=== PATIENT | male | born 1955 ===

== ENCOUNTER → 2018-08-05 | Outpatient (CLI) | payer OTHER ==
--- NOTE | 2018-08-05 17:28 | RADIOLOGY IMAGING REPORT ---
FACILITY: [facility] PATIENT NAME: Parker Stephen : 1955 MR: [id number] V: [id number] EXAM DATE: ORDERING PHYSICIAN: ANASTACIA BINGHAM TECHNOLOGIST: Location: [facility] [place] Patient: Parker Stephen : 1955 Visit/Account:[id number] Date of Sevice: 08/05/2018 Exam type: VENOUS DOPP LOW RIGHT EXTREMIT History: Right calf pain, traveling Comparison: None. Findings: Right lower extremity veins were imaged including the right common femoral vein greater saphenous vei n superficial femoral vein, popliteal vein, posterior tibial vein peroneal vein and anterior tibial v ein revealing no evidence intraluminal thrombi the veins were compressible and demonstrated augmentat ion. Incidentally noted was a small 9.6 x 6.2 x 3.2 mm fluid collection along the dorsal aspect of the mid right forearm which may represent a small hematoma. IMPRESSION: 1. No sonographic evidence DVT involving the right lower extremity veins Report Dictated By: Veronika Centeno MD at 08/05/2018 5:22 PM Report E-Signed By: Veronika Centeno MD at 08/05/2018 5:23 PM WSN:[email or web address]
== END ==
LOC: US 15:29
PROVIDERS: ATTEND Nurse Practitioner
DX: M79.661 Pain in right lower leg (principal); R22.41 Localized swelling, mass and lump, right lower limb

== ENCOUNTER → 2018-08-06 | Outpatient (CLI) | payer OTHER ==
--- NOTE | 2018-08-06 15:21 | RADIOLOGY IMAGING REPORT ---
FACILITY: [facility] PATIENT NAME: Parker Stephen : 1955 MR: [id number] V: [id number] EXAM DATE: ORDERING PHYSICIAN: ANASTACIA BINGHAM TECHNOLOGIST: Location: [facility] Patient: Parker Stephen : 1955 Visit/Account:[id number] Date of Sevice: 08/06/2018 Exam type: HIP RIGHT History: Hip pain evaluate for arthritis Comparison: None. Findings: Only mild superior joint space narrowing is noted bilaterally. No significant arthritic changes seen . No evidence of lytic or blastic bone lesions no evidence of fracture or dislocation. IMPRESSION: 1. Minimal joint space narrowing of the hip joints bilaterally Report Dictated By: Veronika Centeno MD at 08/06/2018 3:16 PM Report E-Signed By: Veronika Centeno MD at 08/06/2018 3:17 PM WSN:[email or web address]
== END ==
LOC: SPU 13:52
PROVIDERS: ATTEND Nurse Practitioner
DX: M25.551 Pain in right hip (principal)

== ENCOUNTER 2018-08-12 08:45 | Outpatient (RCR) | payer OTHER ==
[2018-08-12] MEDS ORDERED: GADOBENATE 529MG/1ML 15ML VIAL IVP ONE (09:56)
--- NOTE | 2018-08-26 15:46 | RADIOLOGY IMAGING REPORT ---
[place] [facility] [place] Parker Stephen : 1955 MR: [id number] V: [id number] EXAM DATE: ORDERING PHYSICIAN: ANASTACIA BINGHAM TECHNOLOGIST: Location: [facility] [place] Patient: Parker Stephen : 1955 Visit/Account:[id number] Date of Sevice: 08/12/2018 ADDENDUM #1 Addendum: An additional axial T1 without fat saturation through the sacrum was obtained. The enhancin g lesion in question in the left posterior iliac wing is hyperintense on T1 and therefore consistent with a benign lesion such as intraosseous hemangioma. The prostate gland is also included in the fiel d-of-view and is mildly enlarged. Report Dictated By: Saad Morgan MD at 08/13/2018 11:48 AM Report E-Signed By: Saad Morgan MD at 08/13/2018 11:50 AM ORIGINAL REPORT EXAMINATION: MRI Lumbar spine without and with intravenous contrast HISTORY: Right hip pain. COMPARISON: None available. TECHNIQUE: Multi-planar, multi-sequence lumbar spine MRI was performed before and after IV contrast. CONTRAST: 15 mL of IV MultiHance FINDINGS: Alignment: 2-3 mm of anterior listhesis of L4 over L5. Vertebral marrow signal: Intraosseous hemangioma in the right side of the L3 vertebral body measuring up to 3.5 cm. Reactive bone marrow edema in the L4 and L5 pedicles. 12 mm enhancing T2 hyperintense lesion in the posterior aspect of the left iliac wing (series 10, image 22). This lesion is not inclu ded on the T1-weighted sequences. Distal thoracic cord: Negative. Conus: negative, terminates at T12-L1 Cauda equina: Negative. Paravertebral soft tissues: Negative. Visualized abdominal and pelvic structures: Negative. Enhancement pattern: Reactive bone marrow enhancement in the L4 and L5 pedicles and surrounding the f acets. Mild enhancement in the L3 hemangioma. Enhancing lesion in the left posterior iliac wing. Othe rwise negative. Disc Spaces: Lower thoracic spine: T11-T12: Circumferential disc bulge and facet hypertrophy with no significant stenosis. T12-L1: Anterior disc osteophytes. No significant stenosis. L1-2: Mild disc bulge with anterior disc osteophytes. Mild facet hypertrophy. No significant stenosis . L2-3: Mild disc bulge with anterior disc osteophytes. Mild facet hypertrophy. No significant stenosis . L3-4: Mild disc height loss and circumferential disc bulge. Mild to moderate facet hypertrophy. Mild to moderate spinal canal and bilateral neural foraminal stenosis. L4-5: 2-3 mm of anterior listhesis. Mild disc height loss and circumferential disc bulge. Moderate fa cet hypertrophy and ligamentum flavum thickening. Severe spinal canal stenosis. Moderate left and mod erately severe right neural foraminal stenosis. L5-S1: Mild circumferential disc bulge and facet hypertrophy. No significant spinal canal stenosis. M ild bilateral neural foraminal stenosis. IMPRESSION: 1. 12 mm nonspecific enhancing lesion in the left posterior iliac wing. This lesion is not included o n the T1-weighted sequences. The differential includes both benign and malignant lesions. The patient will be brought back for additional axial T1 without fat saturation from the top of the sacrum throu gh the bottom of the sacrum. An addendum will be issued at that time. 2. Multilevel degenerative disc disease and facet hypertrophy with 2-3 mm of anterior listhesis of L4 over L5. 3. Intraosseous hemangioma in the right side of the L3 vertebral body. Report Dictated By: Saad Morgan MD at 08/12/2018 10:31 AM Report E-Signed By: Saad Morgan MD at 08/12/2018 10:51 AM WSN:[email or web address]
== END 2018-08-12 18:00 | disposition home or self-care (01) ==
LOC: MRI 08:45 → EDSTATUS 13:39 → MRI 18:00
PROVIDERS: ATTEND Nurse Practitioner
DX: M25.852 Other specified joint disorders, left hip (principal); M51.36 Other intervertebral disc degeneration, lumbar region; D18.09 Hemangioma of other sites
CPT/HCPCS: 72158; A9577

== ENCOUNTER → 2018-08-12 | Outpatient (CLI) | payer OTHER | LOC: SPU 16:12 | PROVIDERS: ATTEND Nurse Practitioner | DX: M89.9 Disorder of bone, unspecified (principal) | CPT/HCPCS: 84153 ==

== ENCOUNTER → 2018-12-23 | Outpatient (CLI) | payer OTHER ==
--- NOTE | 2018-12-23 17:15 | RADIOLOGY IMAGING REPORT ---
FACILITY: [facility] [place] PATIENT NAME: Parker Stephen : 1955 MR: [id number] V: [id number] EXAM DATE: ORDERING PHYSICIAN: WILLI COTTER TECHNOLOGIST: Location: [facility] [place] Patient: Parker Stephen : 1955 Visit/Account:[id number] Date of Sevice: 12/23/2018 L-SPINE 2 OR 3 VIEW HISTORY: Lumbar stenosis AP and lateral lumbar spine films FINDINGS: The study demonstrates no acute bony pathology. Vertebral bodies well-maintained with respect to hei ght. There is mild disc space narrowing change at the L4-5 disc space. There appears to be just min imal retrolisthesis of L5 respect L4. Small anterior lipping changes are seen throughout the lumbar spine. AP film demonstrates keyhole laminotomy changes at the L4-5 disc space. Facet arthropathy ch anges are seen at the L4-5 level. Atherosclerotic calcific in the abdominal aorta. IMPRESSION: 1. Keyhole laminotomy changes at the L4-5 level. Report Dictated By: Eliel Arredondo MD at 12/23/2018 5:00 PM Report E-Signed By: Eliel Arredondo MD at 12/23/2018 5:10 PM WSN:[email or web address]
== END ==
LOC: RAD 15:56
PROVIDERS: ATTEND Orthopaedic Surgery Orthopaedic Surgery of the Spine
DX: I70.0 Atherosclerosis of aorta (principal); Z98.890 Other specified postprocedural states
CPT/HCPCS: 72100